=== PATIENT | male | born 1990 | race African-American/Black ===

== ENCOUNTER 2018-09-03 11:58 | Emergency (ER) | payer MEDICAID, MEDICARE, OTHER ==
[~2018-09-03] VITALS: Ht 180.3 cm; Wt 64.1 kg
[2018-09-03 12:00] VITALS: BP 137/92
[2018-09-03 12:49] LABS: MICROSCOPIC NOT IND
[2018-09-03 12:51] LABS: CULTURE INDICATED? NO
[2018-09-03 12:55] LABS: ALBUMIN 3.8 g/dL (3.4-5.0); ANION GAP 6 mmol/L (5-15); CALCIUM 8.6 mg/dL (8.5-10.1); CHLORIDE 108 mmol/L (98-107)
[2018-09-03 12:59] LABS: ALANINE AMINOTRANSFERASE 21 U/L (12-78); ALKALINE PHOSPHATASE 47 U/L (45-117); BILIRUBIN,TOTAL 1.1 mg/dL (0.2-1.0); CREATININE 1.16 mg/dL (0.7-1.3); TOTAL PROTEIN 7.4 g/dL (6.4-8.2)
[2018-09-03 13:11] LABS: MEAN CORPUSCULAR HEMOGLOBIN 29.9 pg (27.5-34.5); MEAN CORPUSCULAR VOLUME 88.2 fL (81-97); MEAN PLATELET VOLUME 8.3 fL (7.4-10.4); PLATELET COUNT 193 x10^3/uL (130-400); RED BLOOD COUNT 5.35 x10^6/uL (4.38-5.82); RED CELL DISTRIBUTION WIDTH 14.6 % (9.4-14.8)
[2018-09-03 13:19] LABS: MD YES
[2018-09-03 13:26] LABS: BAND#(MANUAL) 0.06 x10^3/uL; BANDS%(MANUAL) 2 % (0-7); EOS#(MANUAL) 0.08 x10^3/uL (0.0-0.4); EOS% (MANUAL) 3 % (1-7); MONOS#(MANUAL) 0.31 x10^3/uL (0.3-2.7); MONOS% (MANUAL) 11 % (2-9); SEG#(MANUAL) 1.18 x10^3/uL (1.8-6.8); SEGS% (MANUAL) 42 % (42-75)
[2018-09-03 13:29] LABS: LYMPH#(MANUAL) 0.92 x10^3/uL (1-3.4); LYMPHS% (MANUAL) 33 % (22-44); REACTIVE LYMPHS # (MANUAL) 0.25 x10^3/uL (0-0); REACTIVE LYMPHS % (MANUAL) 9 % (0-0)
[2018-09-03 13:30] LABS: <RBC MORPHOLOGY> NORMAL
[2018-09-03 13:31] LABS: <PLATELET ESTIMATE> ADEQUATE; <PLT MORPHOLOGY> NORMAL PLT MORPH
== END 2018-09-03 14:38 | disposition home or self-care (01) ==
LOC: ED 14:25
DX: B34.9 Viral infection, unspecified (principal)
CPT/HCPCS: 36415; 71045; 80053; 81003; 85025; 99284

== ENCOUNTER 2020-01-07 23:19 | Emergency (ER) | payer SELFPAY ==
[~2020-01-07] VITALS: Ht 180.3 cm; Wt 65.3 kg
[2020-01-07 23:24] VITALS: BP 131/93
[2020-01-08] MEDS ORDERED: DEXAMETHASONE 4 MG TABLET PO ONE
[2020-01-08] MEDS ORDERED: AMOXICILLIN 500 MG CAPSULE PO STA (00:18)
[2020-01-08] MEDS ORDERED: DEXAMETHASONE 4 MG TABLET ONE (00:27)
[2020-01-08] MEDS ORDERED: AMOXICILLIN 500 MG CAPSULE ONE (00:28)
== END 2020-01-08 00:42 | disposition home or self-care (01) ==
LOC: ED 01-08 00:29
DX: J02.9 Acute pharyngitis, unspecified (principal)
CPT/HCPCS: 87081; 87147; 87880; 99283

== ENCOUNTER 2020-03-05 14:07 | Emergency (ER) | payer SELFPAY ==
[~2020-03-05] VITALS: Ht 180.3 cm; Wt 64.0 kg
[2020-03-05 14:10] VITALS: BP 127/89
--- NOTE | 2020-03-05 14:41 | NUR ---
Pt is here for STD check. Pt states being asymptomatic. No complaints.
== END 2020-03-05 16:04 | disposition home or self-care (01) ==
LOC: ED 15:15
DX: A56.8 Sexually transmitted chlamydial infection of other sites (principal)
CPT/HCPCS: 87491; 87591; 99283

== ENCOUNTER 2021-04-16 07:33 | Emergency (ER) | payer SELFPAY ==
[~2021-04-16] VITALS: Ht 180.3 cm; Wt 65.7 kg
[2021-04-16 07:36] VITALS: BP 136/100
--- NOTE | 2021-04-16 08:13 | NUR ---
PT TO BATHROOM GAIT STEADY UA TO LAB. LBP SINCE YEST NO URINARY SX. MORE ON R THAN L.
[2021-04-16 08:35] LABS: MICROSCOPIC INDICATED
[2021-04-16 09:18] LABS: ALANINE AMINOTRANSFERASE 21 U/L (12-78); ALBUMIN 3.8 g/dL (3.4-5.0); ANION GAP 5 mmol/L (5-15); BASOPHILS % (AUTO) 1 % (0-1); CALCIUM 8.7 mg/dL (8.5-10.1); CHLORIDE 108 mmol/L (98-107); CREATININE 1.06 mg/dL (0.7-1.3); EOSINOPHILS % (AUTO) 3 % (1-7); LYMPHOCYTES % (AUTO) 34 % (22-44); MEAN PLATELET VOLUME 7.8 fL (7.4-10.4); MONOCYTES % (AUTO) 12 % (2-9); NEUTROPHILS % (AUTO) 50 % (42-75); PLATELET COUNT 211 x10^3/uL (130-400); RED BLOOD COUNT 5.23 x10^6/uL (4.38-5.82); RED CELL DISTRIBUTION WIDTH 14.2 % (9.4-14.8)
[2021-04-16 09:20] LABS: ALKALINE PHOSPHATASE 43 U/L (45-117); BILIRUBIN,TOTAL 1.7 mg/dL (0.2-1.0); TOTAL PROTEIN 6.8 g/dL (6.4-8.2)
--- NOTE | 2021-04-16 10:02 | NUR ---
Patient given discharge instructions and prescription and they have confirmed that they understand the instructions. Patient ambulatory with steady gait. NAD, all questions answered appropriately, denies additional needs at this time. No personal belongings left in room after discharge.
== END 2021-04-16 10:45 | disposition home or self-care (01) ==
LOC: ED 09:26
DX: S39.012A Strain of muscle, fascia and tendon of lower back, initial encounter (principal); X58.XXXA Exposure to other specified factors, initial encounter; Y93.89 Activity, other specified; Y92.89 Other specified places as the place of occurrence of the external cause; Y99.8 Other external cause status
CPT/HCPCS: 36415; 71045; 80053; 81001; 83690; 85025; 99284

== ENCOUNTER 2021-06-09 14:33 | Emergency (ER) | payer OTHER ==
[~2021-06-09] VITALS: Ht 180.3 cm; Wt 64.2 kg
--- NOTE | 2021-06-09 14:51 | NUR ---
PA at bedside for exam.
[2021-06-09] MEDS ORDERED: KETOROLAC 30 MG/1 ML IM ONE (15:00)
[2021-06-09] MEDS ORDERED: ACETAMINOPHEN 500 MG TABLET ONE (15:06)
[2021-06-09] MEDS ORDERED: KETOROLAC 30 MG/1 ML ONE (15:06)
--- NOTE | 2021-06-09 15:16 | NUR ---
Pt medicated for pain. Aseptic technique used for injection, and pt tolerated well.
[2021-06-09 15:22] VITALS: BP 119/67
[2021-06-09] MEDS ORDERED: ACETAMINOPHEN 500 MG TABLET PO ONE (15:30)
== END 2021-06-09 15:36 | disposition home or self-care (01) ==
LOC: ED 15:34
DX: K08.89 Other specified disorders of teeth and supporting structures (principal)
CPT/HCPCS: 96372; 99283; J1885